=== PATIENT | male | born 1940 | race Caucasian/White ===

== ENCOUNTER 2019-06-04 11:34 | Outpatient (CLI) | payer OTHER | END 2019-06-04 11:47 | disposition home or self-care (01) | LOC: NUCLEAR 11:34 | DX: I25.10 Atherosclerotic heart disease of native coronary artery without angina pectoris (principal); Z95.1 Presence of aortocoronary bypass graft; Z95.820 Peripheral vascular angioplasty status with implants and grafts; I50.9 Heart failure, unspecified ==

== ENCOUNTER 2019-06-17 11:51 | Outpatient (CLI) | payer OTHER | END 2019-06-17 12:00 | disposition home or self-care (01) | LOC: NUCLEAR 11:51 | DX: I73.9 Peripheral vascular disease, unspecified (principal) ==

== ENCOUNTER 2020-03-25 13:23 | Outpatient (CLI) | payer OTHER | END 2020-03-25 13:41 | disposition home or self-care (01) | LOC: NUCLEAR 13:23 | DX: I27.29 Other secondary pulmonary hypertension (principal); I27.24 Chronic thromboembolic pulmonary hypertension; J96.11 Chronic respiratory failure with hypoxia | CPT/HCPCS: 78580; A9540 ==

== ENCOUNTER 2020-09-19 07:56 | Outpatient (CLI) | payer OTHER | END 2020-09-19 07:59 | disposition home or self-care (01) | LOC: TOM 07:56 | DX: J84.89 Other specified interstitial pulmonary diseases (principal); I26.99 Other pulmonary embolism without acute cor pulmonale | CPT/HCPCS: 71260; Q9965 ==